=== PATIENT | female | born 1995 | race African-American/Black ===

== ENCOUNTER 2016-12-26 10:10 | Emergency (ER) | payer OTHER ==
[~2016-12-26] VITALS: Ht 162.6 cm; Wt 80.0 kg
[~2016-12-26 10:10] MED LIST: IBUP-2070 PO
[2016-12-26] MEDS ORDERED: PROMETHAZINE HCL/CODEINE 6.25-10MG/5ML SYRUP UDCUP PO ONE (11:30)
[2016-12-26] MEDS ORDERED: ALBUTEROL SULFATE 5 MG/ML 20 ML NEB SOLN [BULK] NEB ONE (11:30)
[2016-12-26] MEDS ORDERED: 0.9% SODIUM CHLORIDE 5 ML NEB SOLUTION NEB ONE (11:43)
[2016-12-26 13:38] VITALS: BP 110/68
== END 2016-12-26 14:09 | disposition home or self-care (01) ==
LOC: EMS 10:10
DX: J40 Bronchitis, not specified as acute or chronic (principal)
CPT/HCPCS: 94640; 99283